=== PATIENT | male | born 1980 | race Hispanic/Latino ===

== ENCOUNTER 2016-10-31 11:58 | Emergency (ER) | payer OTHER ==
[~2016-10-31] VITALS: Ht 167.6 cm; Wt 72.6 kg
[~2016-10-31 11:58] MED LIST: AMOX-358 PO; AZIT-21 PO; CEFD300C3 PO; CYCL10TA45 PO; CYCL10TA9 PO; DIAZ10TA3 PO; DICY10CA59 PO; DIPH50CA33 PO; ESCI10TA PO; FAMO40TA6 PO; FLUT16SP22 NSEACH; FLUT9.9S NS; GABA300C PO; HYDR-1231 PO; HYDR-2856 PO; HYDR-3714 PO; HYDR-3731 PO; HYDR-690 PO; MELO15TA14 PO; METH4TAB PO; METR500T21 PO; NAPR-689 PO; NF-SKEL800 PO; ONDA4TAB11 PO; OXYC-197 PO; OXYC-201 PO; OXYC-202 PO; OXYC20TA54 PO; OXYC30TA77 PO; OXYC30TA80 PO; PANT40TA2 PO; PRD20T PO; PRED10TA PO; PREG75CA PO; RT-ALBUINH IH; SUCR1TAB36 PO; TRAM-21 PO; TRAM50TA2 PO
--- OUTSIDE RECORDS SUMMARY | 2016-10-31 12:03 | XMS REPORT | Continuity of Care Document ---
Author Author Interface Organization Interface Address Unknown Phone Unavailable Problems Problem Status Onset Date Classification Date Reported Comments Source Medications Medication Details Route Status Patient Instructions Ordering Provider Order Date Source Allergies, Adverse Reactions, Alerts Substance Category Reaction Severity Reaction type Status Date Reported Comments Source Immunizations Immunization Date Given Site Status Last Updated Comments Source Results Order Name Results Value Reference Range Date Interpretation Comments Source Vital Signs Vital Sign Value Date Comments Source Encounters Location Location Details Encounter Type Encounter Number Reason For Visit Attending Provider ADM Date DC Date Status Source Procedures Procedure Code Date Perfomer Comments Source
[2016-10-31] MEDS ORDERED: MELO7.5T46 PO (14:07)
--- NOTE | 2016-10-31 14:07 | ED Back Pain ---
General Chief Complaint: Back Problems Stated Complaint: BACK PAIN Nursing Triage Note: to ER with complaints of chronic back pain. Patient has been out of his oxycodone for 3 days. Patient has not informed his PCP of this, nor followed up with PCP. Nursing Sepsis Screen: No Definite Risk Source of Information: Patient Exam Limitations: No Limitations History of Present Illness Time Seen by Provider: 14:05 Initial Comments To ER with reports of chronic low back pain radiates down the left leg. He is seen in the emergency room very frequently for this. reports that she washed his clothes 3 days ago and forgot his pain pills pocket and washed them. K tracs history should be reviewed. He has been without his opiates for 3 days he states Location: Lumbar Spine Timing/Duration: 3-4 Days Severity: Moderate Pain/Injury Location: Back Associated Symptoms: lower back pain Allergies and Home Medications Allergies Coded Allergies: No Known Drug Allergies (Unverified , 06/12/16) Home Medications Gabapentin 300 Mg Capsule #20 300 MG PO TID Start with 1 daily. If well tolerated then 1 pill twice daily the next day. If well tolerated then 1 pill 3 x daily. Prescribed by: AAKASH GUIDO on 10/02/16 1334 Meloxicam 7.5 Mg Tablet #14 7.5 MG PO DAILY Prescribed by: REJI HERNANDEZ on 10/31/16 1407 Oxycodone HCl 30 Mg Tab.er.12h #10 30 MG PO NEEDED Prescribed by: REJI HERNANDEZ on 09/12/16 1303 Oxycodone HCl/Acetaminophen 1 Each Tablet #30 1-2 EACH PO Q6H PRN PRN PAIN Prescribed by: AAKASH GUIDO on 10/02/16 1334 Prednisone 20 Mg Tab #8 40 MG PO DAILY Prescribed by: AAKASH GUIDO on 10/02/16 1334 Constitutional: see HPI EENTM: see HPI Respiratory: no symptoms reported Cardiovascular: no symptoms reported Genitourinary: no symptoms reported Musculoskeletal: see HPI back pain Skin: no symptoms reported Psychiatric/Neurological: No Symptoms Reported Past Oorkimx-Udxfqy-Usueii Hx Patient Social History Alcohol Use: Denies Use Recreational Drug Use: No Smoking Status: Current Everyday Smoker Type Used: Cigarettes Recent Foreign Travel: No Contact w/Someone Who Travel: No Recent Infectious Disease Expo: No Recent Hopitalizations: No (RECENT ABDOMINAL INFECTION) Physical Abuse Screen: No Sexual Abuse: No Immunizations Up To Date Tetanus Booster (TDap): Unknown Date of Influenza Vaccine: Jul 17, 2016 Seasonal Allergies Seasonal Allergies: No Surgeries HX Surgeries: No Respiratory Hx Respiratory Disorders: No Cardiovascular Hx Cardiac Disorders: No Neurological Hx Neurological Disorders: Yes Neurological Disorders: Headaches /Migraines Genitourinary Hx Genitourinary Disorders: No Gastrointestinal Hx Gastrointestinal Disorders: Yes (gi bleed) Gastrointestinal Disorders: Gastroesophageal Reflux Musculoskeletal Hx Musculoskeletal Disorders: Yes Musculoskeletal Disorders: Chronic Back Pain Endocrine Hx Endocrine Disorders: No HEENT HX ENT Disorders: No Cancer Hx Cancer: No Psychosocial Hx Psychiatric Problems: No Integumentary HX Skin/Integumentary Disorder: No Blood Transfusions Hx Blood Disorders: No Adverse Reaction to a Blood Tr: No Family Medical History Significant Family History: No Pertinent Family Hx Physical Exam Vital Signs Vital Sign - Last 12Hours 10/31/16 13:58 Temp 98.1 Pulse 91 Resp 18 B/P 123/79 Pulse Ox 99 O2 Delivery Room Air Capillary Refill : Less Than 3 Seconds General Appearance: No Apparent Distress WD/WN HEENT: PERRL/EOMI TMs Normal Respiratory: No Accessory Muscle Use No Respiratory Distress Gastrointestinal: Normal Bowel Sounds Non Tender Soft Extremity: Normal Capillary Refill Non Tender Neurologic/Psychiatric: Alert Oriented x3 No Motor/Sensory Deficits Skin: Normal Color Warm/Dry Progress/Results/Core Measures Results/Orders Vital Signs/I&O Vital Sign - Last 12Hours 10/31/16 13:58 Temp 98.1 Pulse 91 Resp 18 B/P 123/79 Pulse Ox 99 O2 Delivery Room Air Blood Pressure Mean: 94 Departure Impression Impression: Primary Impression: Chronic low back pain Qualified Code: M54.5 - Low back pain Additional Impression: Opiate addiction Qualified Code: F11.20 - Opioid dependence, uncomplicated Disposition: 01 HOME, SELF-CARE Condition: Stable Departure-Patient Inst. Decision time for Depature: 14:06 Referrals: KAMILLA MCNEIL MD (PCP/Family) Primary Care Physician Patient Instructions: MANAGING YOUR CHRONIC PAIN Add. Discharge Instructions: 1. Follow-up with Dr. Romero or Dr. Mcneil 2. Return to ER for any concerns All discharge instructions reviewed with patient and/or family. Voiced understanding. Scripts Meloxicam 7.5 Mg Tablet7.5 Mg PO DAILY #14 TAB Prov:HERNANDEZREJI DOOLEY APRN 10/31/16 REJI HERNANDEZ APRN Oct 31, 2016 14:07
[2016-10-31 14:15] VITALS: BP 123/79
== END 2016-10-31 14:15 | disposition home or self-care (01) ==
LOC: EDUNIT# 11:58 → ER 11:59
DX: M54.5 Low back pain (principal); G89.29 Other chronic pain; F11.20 Opioid dependence, uncomplicated
CPT/HCPCS: 99285

== ENCOUNTER → 2016-11-04 | Outpatient (CLI) | payer OTHER ==
[~2016-11-04] MED LIST changes: +MELO7.5T46 PO
--- OUTSIDE RECORDS SUMMARY | 2016-11-04 07:36 | XMS REPORT | Continuity of Care Document ---
Author Author Interface Organization Interface Address Unknown Phone Unavailable Problems Problem Status Onset Date Classification Date Reported Comments Source Low back pain 11/01/2016 [facility] Chest pain, unspecified 11/01/2016 [facility] Procedure and treatment not carried out due to patient leaving prior to being seen by health care provider 11/01/2016 [facility] No data available for this section Problem 11/01/2016 [facility] Medications Medication Details Route Status Patient Instructions Ordering Provider Order Date Source Allergies, Adverse Reactions, Alerts Substance Category Reaction Severity Reaction type Status Date Reported Comments Source Immunizations Immunization Date Given Site Status Last Updated Comments Source No data available for this section No data available for this section [facility] Results Order Name Results Value Reference Range Date Interpretation Comments Source Vital Signs Vital Sign Value Date Comments Source Temperature Route Oral </br>(10/27/16 4:26 PM) 10/27/2016 [facility] Temperature Oral 97.7 [degF] 10/27/2016 [facility] Resp. Rate 18 BRMIN 2016 [facility] Heart Rate 85 bpm 10/27/2016 [facility] Systolic BP 126 mmHg 2016 [facility] Diastolic BP 79 mmHg 2016 [facility] Oxygen Saturation 100 % 10/27 [facility] Oxygen Therapy Room air </br>(10/27/16 4:26 PM) 10/27/2016 [facility] Encounters Location Location Details Encounter Type Encounter Number Reason For Visit Attending Provider ADM Date DC Date Status Source [facility] Emergency [id number] Prieto Garcia 10/27/2016 10/28/2016 [facility] Procedures Procedure Code Date Perfomer Comments Source No data available for this section [facility]
--- NOTE | 2016-11-05 07:33 | STRESS TEST ---
PROCEDURE PHYSICIAN: MILLA DIEHL DATE OF PROCEDURE: 11/04/2016 EXERCISE STRESS TEST: REFERRING PHYSICIAN: Dr. Sandro Pratt. INDICATION: Chest pain. PROCEDURE: The patient was brought to the stress lab after informed consent was taken. Stress test was performed based on the standard [facility] protocol. Baseline electrocardiogram showed sinus rhythm with resting heart rate of 91 bpm. Blood pressure was 126/67 mmHg. The patient exercised for 10 minutes and 15 seconds and achieved 12.8 metabolic equivalents. Maximum heart rate was 171 bpm which is 92% of maximum predicted heart rate response. Maximum blood pressure was 164/52 mmHg. The patient did not complain of any chest pain during the stress test. The stress test was stopped secondary to fatigue. No ST changes were noted. There were no arrhythmias present. CONCLUSION: 1. Good functional capacity. 2. Normotensive response to exercise. 3. Exercise stress test was negative for ischemia. Job ID: [id number] Dictated Date: 11/04/2016 14:13:13 [employer] Date: 11/05/2016 07:30:35 / melly
== END ==
LOC: CARD 07:32
PROVIDERS: ATTEND Family Medicine
DX: R07.89 Other chest pain (principal); F41.1 Generalized anxiety disorder
CPT/HCPCS: 93017

== ENCOUNTER 2017-03-20 22:54 | Emergency (ER) | payer OTHER ==
[~2017-03-20] VITALS: Ht 177.8 cm; Wt 99.8 kg
[~2017-03-20 22:54] MED LIST changes: +TRANEXAMIC ACID 100 MG/ML 10 ML INJECTION IV ONE
[2017-03-20] MEDS ORDERED: NS (IVPB) 50 ML ONE (23:01)
[2017-03-20] MEDS ORDERED: fentaNYL INJECTION 100 MCG/2 ML AMP ONE (23:14)
[2017-03-20] MEDS ORDERED: ceFAZolin 1,000 MG (ANCEF) VIAL ONE (23:22)
[2017-03-20] MEDS ORDERED: NS (IVPB) 100 ML ONE (23:23)
[2017-03-20 23:26] LABS: RED BLOOD COUNT 4.86 10^6/uL (4.35-5.85); RED CELL DISTRIBUTION WIDTH 13.3 % (10.0-14.5); WHITE BLOOD COUNT 13.7 10^3/uL (4.3-11.0)
[2017-03-20] MEDS ORDERED: TRANEXAMIC ACID INJECTION 1,000 MG in NS (IVPB) 50 ML IV ONE (23:30)
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
[2017-03-20 23:37] LABS: BILIRUBIN,URINE NEGATIVE (NEGATIVE); KETONES,URINE NEGATIVE (NEGATIVE); LEUKOCYTE ESTERASE ,URINE NEGATIVE (NEGATIVE); NITRITE,URINE NEGATIVE (NEGATIVE); PH,URINE 6.5 (5-9); PROTEIN,URINE NEGATIVE (NEGATIVE); UROBILINOGEN,URINE NORMAL (NORMAL)
[2017-03-20 23:40] LABS: ALANINE AMINOTRANSFERASE 156 U/L (0-55); ALCOHOL 247 MG/DL (<10); ANION GAP 14 MMOL/L (5-14); ASPARTATE AMINO TRANSFERASE 148 U/L (5-34); BILIRUBIN,DIRECT 0.1 MG/DL (0.0-0.3); BILIRUBIN,INDIRECT 0.3 MG/DL; BILIRUBIN,TOTAL 0.4 MG/DL (0.1-1.0); BLOOD UREA NITROGEN 8 MG/DL (7-18); BUN/CREATININE RATIO 9; CALCIUM 8.1 MG/DL (8.5-10.1); CARBON DIOXIDE 17 MMOL/L (21-32); CHLORIDE 116 MMOL/L (98-107); GFR ESTIMATED > 60; GLUCOSE 126 MG/DL (70-105); MAGNESIUM 2.5 MG/DL (1.8-2.4); PHOSPHORUS 5.4 MG/DL (2.3-4.7); POTASSIUM 5.2 MMOL/L (3.6-5.0); SODIUM 147 MMOL/L (135-145); TOTAL PROTEIN 6.8 G/DL (6.4-8.2)
[2017-03-20 23:53] VITALS: BP 121/73
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
[2017-03-21] MEDS ORDERED: NS IV 1000 ML 1,000 ML IV ONE (04:10)
[2017-03-21] MEDS ORDERED: ceFAZolin 1,000 MG (ANCEF) VIAL IV ONE (04:15)
[2017-03-21] MEDS ORDERED: fentaNYL INJECTION 100 MCG/2 ML AMP IVP ONE (04:15)
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
--- OUTSIDE RECORDS SUMMARY | 2017-04-01 13:25 | XMS REPORT | Continuity of Care Document ---
Author Author [facility] Organization [facility] Address Unknown Phone Unavailable Care Team Providers Care Folder Operator Name Role Phone Sandro Pratt PCP [phone] Source Comments Some departments are not documenting in the electronic medical record. If you do not see the information that you expected, contact Release of Information in the Health Information Management department at [phone] for further assistance in locating additional records.[facility] Active Allergies and Adverse Reactions No Known Allergies Current Medications Prescription Sig. Disp. Refills Start End Date Status Date oxyCODONE (ROXICODONE, Take 30 mg by mouth every Active OXY-IR) 30 mg tablet 6 hours as needed for Pain pantoprazole DR Take 40 mg by mouth Active (PROTONIX) 40 mg tablet daily. sucralfate (CARAFATE) 1 Take 1 g by mouth every 6 Active gram tablet hours. Take on an empty stomach. lansoprazole DR(+) Take 30 mg by mouth daily Active (PREVACID) 30 mg capsule 30 minutes before breakfast. Active Problems Problem Noted Date Lumbosacral radiculopathy at L4 12/07/2016 Annular tear of lumbar disc 12/07/2016 Herniated nucleus pulposus, L4-5 left 12/07/2016 Social History Tobacco Use Types Packs/Day Years Used Date Current Some Day Smoker Last Filed Vital Signs Vital Sign Reading Time Taken Blood Pressure 118/70 12/07/2016 10:32 AM HYDRAULIC PRESS IN OPERATOR Pulse 91 12/07/2016 10:32 AM HYDRAULIC PRESS IN OPERATOR Temperature 37.1 C (98.7 F) 10/19/2016 1:59 PM HYDRAULIC PRESS IN OPERATOR Respiratory Rate 15 10/19/2016 1:59 PM HYDRAULIC PRESS IN OPERATOR Height 1.676 m (5' 6") 12/07/2016 10:32 AM HYDRAULIC PRESS IN OPERATOR Weight 70.308 kg (155 lb) 12/07/2016 10:32 AM HYDRAULIC PRESS IN OPERATOR Body Mass Index 25.03 12/07/2016 10:32 AM HYDRAULIC PRESS IN OPERATOR Oxygen Saturation 100% 10/19/2016 1:59 PM HYDRAULIC PRESS IN OPERATOR Plan of Care Health Maintenance Due Date Last Done Comments Physical (Comprehensive) 1988 Exam Pertussis Vaccine 1992 Tetanus Vaccine 1998 Influenza Vaccine 06/17/2017 Results from Last 3 Months Not on file
--- OUTSIDE RECORDS SUMMARY | 2017-04-01 13:25 | XMS REPORT ---
Author Author CARINE STYLES Organization [employer] Address Unknown Phone Unavailable Care Team Providers Care Postdoctoral Scholar Name Role Phone CARINE STYLES CP Unavailable Allergies No Known Allergies Problems Problem Type Condition ICD-9 Code Onset Dates Condition Status Problem Counseling on substance use and abuse V65.42 Active Problem Influenza with other respiratory manifestations 487.1 Active Problem Lumbago 724.2 Active Assessment Dental examination V72.2 Active Medications No Known Medications Procedures Procedure Coding System Code Date Billing Notes on claim CPT-4 EC109 March 25, 2015 Results No Known Results Summary Purpose [employer] Submission
--- OUTSIDE RECORDS SUMMARY | 2017-04-01 13:25 | XMS REPORT | Continuity of Care Document ---
Author Author [employer] Organization [facility] Address Unknown Phone Unavailable Care Team Providers Care Customer Success Director Name Role Phone [employer] Unavailable Unavailable Problems Problem Status Onset Date Classification Date Reported Comments Source Low back pain 11/01/2016 [facility] Chest pain, unspecified 11/01/2016 [facility] Procedure and treatment not carried out due to patient leaving prior to being seen by health care provider 11/01/2016 [facility] No data available for this section Problem 11/01/2016 [facility] Medications Allergies, Adverse Reactions, Alerts Immunizations Immunization Date Given Site Status Last Updated Comments Source No data available for this section No data available for this section [facility] Results Vital Signs Vital Sign Value Date Comments Source Temperature Route Oral
</br>(10/27/16 4:26 PM) 10/27/2016 [facility] Temperature Oral 97.7 [degF] 10/27/2016 [facility] Resp. Rate 18 BRMIN 2016 [facility] Heart Rate 85 bpm 10/27/2016 [facility] Systolic BP 126 mmHg 2016 [facility] Diastolic BP 79 mmHg 2016 [facility] Oxygen Saturation 100 % 10/27 [facility] Oxygen Therapy Room air
</br>(10/27/16 4:26 PM) 10/27/2016 [facility] Encounters Location Location Details Encounter Type Encounter Number Reason For Visit Attending Provider ADM Date DC Date Status Source [facility] Emergency [id number] Prieto Go 10/27/2016 10/28/2016 [facility] Procedures Procedure Code Date Perfomer Comments Source No data available for this section [facility] Plan of Care Social History Assessment and Plan Date Assessment and Plan Source Author:Jinny Choudhary Title:ED Discharge Instructions Date:10/27/[address] [address] Emergency Department [phone] Emergency Department Discharge Instructions Name : SANA PACK Visit Date: 10/27/2016 4:07 PM Reason For Visit: Chest pain; CP Case Management Discharge: [employer] Discharge Form Disposition: Left without being seen by practitioner Left Without Being Seen 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 It is important that you understand that emergency medical services are not a substitute for complete medical care. For your protection, make arrangements to see the doctor indicated below. All smokers are encouraged to stop smoking. If you would like help, talk to your doctor or call The [place] Tobacco Quitline at 2-409-YGVK-NXT (1-292-050- 7519). If you have thoughts about committing suicide or otherwise hurting yourself, please call 911 or call Crisis Line at . If your primary care provider is a [facility] physician or you would like to establish care at [facility] please call [phone] to schedule an appointment. If you are a new patient you may have to wait up to 60 days for a scheduled appointment. If you need to establish care sooner, you may want to look for other options. PAYMENT GUIDELINES FOR [facility] PATIENTS: [facility] now requires all self-pay and partial [facility] discount patients to make a down payment before receiving non-emergency care. In most cases, your down payment will be 25 percent of your charges. If you currently receive a 100% [facility] discount , these new guidelines do not apply to you. We accept mclain, check, Visa and MasterCard. If you are a self-pay patient and would like to discuss discounted services or Medicaid, please contact [facility] at [phone]. Remember: at the time of your appointment, you must present a photo ID as well as your insurance card or the required down payment, or your appointment will be rescheduled for another day. If you have commercial insurance and [facility] is not on your list of providers, please call your insurance company and make your follow-up appointment with your PCP or a provider who takes your insurance. SANA PACK has been given the following list of patient education materials, prescriptions and follow-up instructions: Follow-up Instructions: Patient Education Materials : Prescription leaflets: Prescriptions : No Prescriptions given this visit Comment: Your Upcoming Appointments/[facility]icky [place] Please bring all home medications to every visit with us at [facility]. Your safety and education around medications is our goal. (Prescription , non prescription and herbal supplements) Date Time Location Appointment Type Provider No Appointments found Future Orders Placed Today/ [facility] Doctor Order Name Details Ordering Provider EKG 12 Lead Requested Start Date/Time: 10/27/16 16:08:00 Cardiology Reason For Exam: Chest Pain 786.50 EKG Priority: Stat Future Order: No Schedule on Requested Date: No Stop Date/Time: 10/27/16 16:08:00 [facility], Protocol Major procedures/tests performed during your ED visit: Laboratory Orders No laboratory orders were placed. Radiology Orders No radiology orders were placed. [ ] (If checked) Do not drive or operate heavy machinery for 12 hours. The exam and treatment that you received today has been provided on an emergency basis only. If your problem worsens or new symptoms appear, contact your doctor or return to this facility for further care. YOU MUST MAKE A FOLLOW-UP APPOINTMENT IN THE CLINIC LISTED ABOVE TO RECEIVE YOUR TEST RESULTS! Take Charge of Your Health with [facility] Sign up today for [employer] [email or web address] for access to your health records 09/05. [employer] [facility] allows you to: Request an appointment Check your lab results Communicate with your providers and care team See provider notes from your visit View immunization records View current medication Sign up Today! Ask your healthcare provider or a [facility] associate for help, or email [email or web address]. [email or web address] RAMONE Bejarano JOSE L, have received the attached patient education materials/ instructions and have verbalized understanding/Yo recibi educacion, materiales instrucciones de paciente y se me a explicado verbalmente para mi propia comprension: Patient/Guardian Signature Date Firma de paciente/guardian Fecha Witness Signature Date William Condon [facility] Family History Value Date Source Advance Directives Order Name Results Value Date Source
--- OUTSIDE RECORDS SUMMARY | 2017-04-01 13:29 | XMS REPORT | Continuity of Care Document ---
Author Author [facility] Organization [facility] Address Unknown Phone Unavailable Allergies Active Description Code Type Severity Reaction Onset Reported/Identified Relationship to Patient Clinical Status Yes No Known Drug Allergies [id number] Drug Allergy Mild N/A 06/12/2016 Medications Problems Date Dx Coded Attending Type Code Diagnosis Diagnosed By 03/22/2014 REJI HERNANDEZ WEIGHING STATION OPERATOR Ot 708.9 URTICARIA NOS 03/22/2014 REJI HERNANDEZ WEIGHING STATION OPERATOR Ot 782.1 NONSPECIF SKIN ERUPT NEC 03/23/2014 AMILCAR LOUIS MD Ot 708.9 URTICARIA NOS 03/23/2014 AMILCAR LOUIS MD Ot 782.1 NONSPECIF SKIN ERUPT NEC 08/04/2014 JOE ARANDA, CINDY Fang Ot 724.2 LUMBAGO 08/04/2014 CINDY DIAZ MD Ot 724.4 LUMBOSACRAL NEURITIS NOS 08/21/2014 REJI HERNANDEZ WEIGHING STATION OPERATOR Ot 724.2 LUMBAGO 08/21/2014 REJI HERNANDEZ WEIGHING STATION OPERATOR Ot 724.4 LUMBOSACRAL NEURITIS NOS 09/11/2014 REJI HERNANDEZ WEIGHING STATION OPERATOR Ot 721.3 10/01/2014 REJI HERNANDEZ WEIGHING STATION OPERATOR Ot 721.3 10/01/2014 REJI HERNANDEZ WEIGHING STATION OPERATOR Ot 721.3 10/14/2014 REJI HERNANDEZ WEIGHING STATION OPERATOR Ot 721.3 10/23/2014 JARED ROBERTSON DO Ot 724.3 SCIATICA 10/23/2014 JARED ROBERTSON DO Ot 724.4 LUMBOSACRAL NEURITIS NOS 10/23/2014 JARED ROBERTSON DO Ot 729.5 PAIN IN LIMB 10/29/2014 REJI HERNANDEZ WEIGHING STATION OPERATOR Ot 721.3 11/05/2014 BRIJESH SALAS MD Ot 724.02 11/05/2014 BRIJESH SALAS MD Ot 724.4 11/05/2014 MARITZA ARANDA, BRIJESH Way Ot V74.8 11/15/2014 REJI HERNANDEZ APRN Ot 721.3 11/15/2014 BRIJESH SALAS MD Ot 724.02 11/15/2014 BRIJESH SALAS MD Ot 724.4 11/15/2014 BRIJESH SALAS MD Ot V74.8 11/15/2014 BRIJESH SALAS MD Ot 724.02 11/15/2014 BRIJESH SALAS MD Ot V72.84 11/25/2014 BRIJESH SALAS MD Ot 724.02 11/25/2014 BRIJESH SALAS MD Ot 724.4 11/25/2014 BRIJESH SALAS MD Ot V74.8 01/13/2015 BRIJESH SALAS MD Ot 724.02 01/13/2015 BRIJESH SALAS MD Ot 724.4 01/13/2015 BRIJESH SALAS MD Ot V74.8 01/21/2015 LUIS ARANDA, ANN Way Ot 722.52 01/21/2015 LUIS ARANDA, ANN Way Ot V57.1 01/31/2015 ANN SMITH MD Ot 722.52 01/31/2015 LUIS ARANDA, ANN Way Ot V57.1 02/05/2015 BRIJESH SALAS MD Ot 724.02 02/05/2015 BRIJESH SALAS MD Ot V72.84 02/11/2015 LUIS ARANDA, ANN Way Ot 722.52 LUMB/LUMBOSAC DISC DEGEN 02/11/2015 LUIS ARANDA, ANN Way Ot V57.1 PHYSICAL THERAPY NEC 06/07/2015 BRIJESH SALAS MD Ot 724.02 06/07/2015 BRIJESH SALAS MD Ot 724.4 06/07/2015 BRIJESH SALAS MD Ot V74.8 06/07/2015 MOLLY BANEGAS MD Ot 724.2 LUMBAGO 06/07/2015 MOLLY BANEGAS MD Ot 724.4 LUMBOSACRAL NEURITIS NOS 08/19/2015 BRIJESH SALAS MD Ot 724.02 08/19/2015 BRIJESH SALAS MD Ot 724.4 08/19/2015 BRIJESH SALAS MD Ot V74.8 08/19/2015 BRIJESH SALAS MD Ot 724.02 08/19/2015 BRIJESH SALAS MD Ot 724.4 08/19/2015 BRIJESH SALAS MD Ot V74.8 09/08/2015 BRIJESH SALAS MD Ot 724.02 09/08/2015 BRIJESH SALAS MD Ot 724.4 09/08/2015 BRIJESH SALAS MD Ot V74.8 09/08/2015 CARINE DAVIS MD Ot M47.816 SPONDYLOSIS W/O MYELOPATHY OR RADICULOPA 09/08/2015 CARINE DAVIS MD Ot M51.16 INTERVERTEBRAL DISC DISORDERS W RADICULO 09/24/2015 ANN SMITH MD Ot M54.5 11/07/2015 REJI HERNANDEZ WEIGHING STATION OPERATOR Ot 721.3 11/07/2015 BRIJESH SALAS MD Ot 724.02 11/07/2015 BRIJESH SALAS MD Ot 724.4 11/07/2015 BRIJESH SALAS MD Ot V74.8 11/07/2015 BRIJESH SALAS MD Ot 724.02 11/07/2015 BRIJESH SALAS MD Ot V72.84 11/17/2015 REJI HERNANDEZ WEIGHING STATION OPERATOR Ot 721.3 11/17/2015 BRIJESH SALAS MD Ot 724.02 11/17/2015 BRIJESH SALAS MD Ot 724.4 11/17/2015 BRIJESH SALAS MD Ot V74.8 11/17/2015 BRIJESH SALAS MD Ot 724.02 11/17/2015 BRIJESH SALAS MD Ot V72.84 11/17/2015 ANN SMITH MD Ot M54.5 01/13/2016 REJI HERNANDEZ WEIGHING STATION OPERATOR Ot 721.3 01/13/2016 BRIJESH SALAS MD Ot 724.02 01/13/2016 BRIJESH SALAS MD Ot 724.4 01/13/2016 BRIJESH SALAS MD Ot V74.8 01/13/2016 BRIJESH SALAS MD Ot 724.02 01/13/2016 BRIJESH SALAS MD Ot V72.84 01/13/2016 ANN SMITH MD Ot M54.5 01/13/2016 ANN SMITH MD Ot M54.5 03/18/2016 REJI HERNANDEZ APRN Ot 721.3 LUMBOSACRAL SPONDYLOSIS 03/18/2016 BRIJESH SALAS MD Ot 724.02 SPINAL STENOSIS, LUMBAR REG, W/OUT NEURO 03/18/2016 BRIJESH SALAS MD Ot 724.4 LUMBOSACRAL NEURITIS NOS 03/18/2016 BRIJESH SALAS MD Ot V74.8 SCREEN-BACTERIAL DIS NEC 03/18/2016 BRIJESH SALAS MD Ot 724.02 SPINAL STENOSIS, LUMBAR REG, W/OUT NEURO 03/18/2016 BRIJESH SALAS MD Ot V72.84 EXAM PRE-OPERATIVE NOS 03/18/2016 ANN SMITH MD Ot M54.5 LOW BACK PAIN 03/18/2016 REJI HERNANDEZ APRN Ot H66.92 OTITIS MEDIA, UNSPECIFIED, LEFT EAR 03/18/2016 REJI HERNANDEZ APRN Ot J01.10 ACUTE FRONTAL SINUSITIS, UNSPECIFIED 03/18/2016 REJI HERNANDEZ APRN Ot R06.2 WHEEZING 03/19/2016 REJI HERNANDEZ APRN Ot H66.92 OTITIS MEDIA, UNSPECIFIED, LEFT EAR 03/19/2016 REJI HERNANDEZ APRN Ot J01.10 ACUTE FRONTAL SINUSITIS, UNSPECIFIED 03/19/2016 REJI HERNANDEZ APRN Ot R06.2 WHEEZING 03/20/2016 NORA ARANDA, PATEL Fang Ot F17.210 NICOTINE DEPENDENCE, CIGARETTES, UNCOMPL 03/20/2016 NORA ARANDA, PATEL Fang Ot J06.9 ACUTE UPPER RESPIRATORY INFECTION, UNSPE 03/20/2016 NORA ARANDA, PATEL Fang Ot K92.1 MELENA 03/20/2016 PATEL MELENDEZ MD Ot R19.7 DIARRHEA, UNSPECIFIED 04/20/2016 ANN SMITH MD Ot M54.5 LOW BACK PAIN 04/20/2016 REJI HERNANDEZ APRN Ot 721.3 LUMBOSACRAL SPONDYLOSIS 04/20/2016 BRIJESH SALAS MD Ot 724.02 SPINAL STENOSIS, LUMBAR REG, W/OUT NEURO 04/20/2016 BRIJESH SALAS MD Ot 724.4 LUMBOSACRAL NEURITIS NOS 04/20/2016 BRIJESH SALAS MD Ot V74.8 SCREEN-BACTERIAL DIS NEC 04/20/2016 MARITZA ARANDA, BRIJESH aWy Ot 724.02 SPINAL STENOSIS, LUMBAR REG, W/OUT NEURO 04/20/2016 MARITZA ARANDA, BRIJESH Way Ot V72.84 EXAM PRE-OPERATIVE NOS 04/20/2016 LUIS ARANDA, ANN Way Ot M54.5 LOW BACK PAIN 05/04/2016 MERCEDES DO, ALEXI D Ot K29.70 GASTRITIS, UNSPECIFIED, WITHOUT BLEEDING 05/04/2016 MERCEDES DO, ALEXI D Ot K44.9 DIAPHRAGMATIC HERNIA WITHOUT OBSTRUCTION 05/04/2016 MERCEDES DO, ALEXI D Ot R19.5 OTHER FECAL ABNORMALITIES 05/05/2016 MERCEDES DO, ALEXI D Ot K29.70 GASTRITIS, UNSPECIFIED, WITHOUT BLEEDING 05/05/2016 MERCEDES DO, ALEXI D Ot K44.9 DIAPHRAGMATIC HERNIA WITHOUT OBSTRUCTION 05/05/2016 MERCEDES DO, ALEXI D Ot R19.5 OTHER FECAL ABNORMALITIES 05/05/2016 MERCEDES DO, ALEXI D Ot K29.70 GASTRITIS, UNSPECIFIED, WITHOUT BLEEDING 05/05/2016 MERCEDES DO, ALEXI D Ot K44.9 DIAPHRAGMATIC HERNIA WITHOUT OBSTRUCTION 05/05/2016 MERCEDES DO, ALEXI D Ot R19.5 OTHER FECAL ABNORMALITIES 06/12/2016 REJI HERNANDEZ WEIGHING STATION OPERATOR Ot K58.0 IRRITABLE BOWEL SYNDROME WITH DIARRHEA 06/12/2016 REJI HERNANDEZ WEIGHING STATION OPERATOR Ot R19.7 DIARRHEA, UNSPECIFIED 06/15/2016 REJI HERNANDEZ WEIGHING STATION OPERATOR Ot K58.0 IRRITABLE BOWEL SYNDROME WITH DIARRHEA 06/15/2016 REJI HERNANDEZ WEIGHING STATION OPERATOR Ot R19.7 DIARRHEA, UNSPECIFIED 07/16/2016 REJI HERNANDEZ WEIGHING STATION OPERATOR Ot K58.0 IRRITABLE BOWEL SYNDROME WITH DIARRHEA 07/16/2016 REJI HERNANDEZ WEIGHING STATION OPERATOR Ot R19.7 DIARRHEA, UNSPECIFIED 08/01/2016 REJI HERNANDEZ WEIGHING STATION OPERATOR Ot F41.9 ANXIETY DISORDER, UNSPECIFIED 08/01/2016 REJI HERNANDEZ WEIGHING STATION OPERATOR Ot G89.29 OTHER CHRONIC PAIN 08/01/2016 REJI HERNANDEZ WEIGHING STATION OPERATOR Ot M54.5 LOW BACK PAIN 08/01/2016 REJI HERNANDEZ WEIGHING STATION OPERATOR Ot R51 HEADACHE 08/01/2016 REJI HERNANDEZ WEIGHING STATION OPERATOR Ot Z79.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 SAFETY OFFICER (CURRENT) USE OF OPIATE ANALGE 08/03/2016 REJI HERNANDEZ WEIGHING STATION OPERATOR Ot F41.9 ANXIETY DISORDER, UNSPECIFIED 08/03/2016 REJI HERNANDEZ WEIGHING STATION OPERATOR Ot G89.29 OTHER CHRONIC PAIN 08/03/2016 REJI HERNANDEZ WEIGHING STATION OPERATOR Ot M54.5 LOW BACK PAIN 08/03/2016 REJI HERNANDEZ WEIGHING STATION OPERATOR Ot R51 HEADACHE 08/03/2016 REJI HERNANDEZ WEIGHING STATION OPERATOR Ot Z79.891 GLOBAL SAFETY OFFICER (CURRENT) USE OF OPIATE ANALGE 08/05/2016 LAVELLE ARANDA, AAKASH T Ot F17.210 NICOTINE DEPENDENCE, CIGARETTES, UNCOMPL 08/05/2016 LAVELLE ARANDA, AAKASH T Ot G89.29 OTHER CHRONIC PAIN 08/05/2016 LAVELLE ARANDA, AAKASH T Ot M54.2 CERVICALGIA 08/05/2016 LAVELLE ARANDA, AAKASH T Ot M54.5 LOW BACK PAIN 08/06/2016 LAVELLE ARANDA, AAKASH T Ot F17.210 NICOTINE DEPENDENCE, CIGARETTES, UNCOMPL 08/06/2016 LAVELLE ARANDA, AAKASH T Ot G89.29 OTHER CHRONIC PAIN 08/06/2016 LAVELLE ARANDA, AAKASH T Ot M54.2 CERVICALGIA 08/06/2016 LAVELLE ARANDA, AAKASH T Ot M54.5 LOW BACK PAIN 08/11/2016 LAVELLE ARANDA, AAAKSH T Ot F17.210 NICOTINE DEPENDENCE, CIGARETTES, UNCOMPL 08/11/2016 LAVELLE ARANDA, AAKASH T Ot G89.29 OTHER CHRONIC PAIN 08/11/2016 LAVELLE ARANDA, AAKASH T Ot M54.2 CERVICALGIA 08/11/2016 LAVELLE ARANDA, AAKASH T Ot M54.5 LOW BACK PAIN 08/11/2016 REJI HERNANDEZ WEIGHING STATION OPERATOR Ot F17.210 NICOTINE DEPENDENCE, CIGARETTES, UNCOMPL 08/11/2016 REJI HERNANDEZ WEIGHING STATION OPERATOR Ot M54.16 RADICULOPATHY, LUMBAR REGION 09/06/2016 NILSON MCNAIR DO Ot F17.210 NICOTINE DEPENDENCE, CIGARETTES, UNCOMPL 09/06/2016 NILSON MCNAIR DO Ot M48.06 SPINAL STENOSIS, LUMBAR REGION 09/06/2016 NILSON MCNAIR DO Ot M51.16 INTERVERTEBRAL DISC DISORDERS W RADICULO 09/06/2016 NILSON MCNAIR DO Ot M54.5 LOW BACK PAIN 09/07/2016 NILSON MCNAIR DO Ot F17.210 NICOTINE DEPENDENCE, CIGARETTES, UNCOMPL 09/07/2016 NILSON MCNAIR DO Ot M48.06 SPINAL STENOSIS, LUMBAR REGION 09/07/2016 NILSON MCNAIR DO Ot M51.16 INTERVERTEBRAL DISC DISORDERS W RADICULO 09/07/2016 NILSON MCNAIR DO Ot M54.5 LOW BACK PAIN 09/12/2016 REJI HERNANDEZ APRN Ot F17.210 NICOTINE DEPENDENCE, CIGARETTES, UNCOMPL 09/12/2016 REJI HERNANDEZ APRN Ot R11.2 NAUSEA WITH VOMITING, UNSPECIFIED 09/12/2016 REJI HERNANDEZ APRN Ot R19.7 DIARRHEA, UNSPECIFIED 09/14/2016 REJI HERNANDEZ APRN Ot F17.210 NICOTINE DEPENDENCE, CIGARETTES, UNCOMPL 09/14/2016 REJI HERNANDEZ APRN Ot R11.2 NAUSEA WITH VOMITING, UNSPECIFIED 09/14/2016 REJI HERNANDEZ APRN Ot R19.7 DIARRHEA, UNSPECIFIED 09/14/2016 REJI HERNANDEZ APRN Ot F17.210 NICOTINE DEPENDENCE, CIGARETTES, UNCOMPL 09/14/2016 REJI HERNANDEZ APRN Ot R11.2 NAUSEA WITH VOMITING, UNSPECIFIED 09/14/2016 REJI HERNANDEZ APRN Ot R19.7 DIARRHEA, UNSPECIFIED 09/17/2016 NILSON MCNAIR DO Ot F17.210 NICOTINE DEPENDENCE, CIGARETTES, UNCOMPL 09/17/2016 NILSON MCNAIR DO Ot M48.06 SPINAL STENOSIS, LUMBAR REGION 09/17/2016 NILSON MCNAIR DO Ot M51.16 INTERVERTEBRAL DISC DISORDERS W RADICULO 09/17/2016 NILSON MCNAIR DO Ot M54.5 LOW BACK PAIN 09/17/2016 REJI HERNANDEZ APRN Ot F17.210 NICOTINE DEPENDENCE, CIGARETTES, UNCOMPL 09/17/2016 REJI HERNANDEZ APRN Ot R11.2 NAUSEA WITH VOMITING, UNSPECIFIED 09/17/2016 REJI HERNANDEZ APRN Ot R19.7 DIARRHEA, UNSPECIFIED 09/26/2016 REJI HERNANDEZ APRN Ot M48.06 SPINAL STENOSIS, LUMBAR REGION 09/26/2016 REJI HERNANDEZ APRN Ot M54.16 RADICULOPATHY, LUMBAR REGION 09/26/2016 REJI HERNANDEZ APRN Ot M54.5 LOW BACK PAIN 09/27/2016 REJI HERNANDEZ APRN Ot F17.210 NICOTINE DEPENDENCE, CIGARETTES, UNCOMPL 09/27/2016 REJI HERNANDEZ WEIGHING STATION OPERATOR Ot R11.2 NAUSEA WITH VOMITING, UNSPECIFIED 09/27/2016 REJI HERNANDEZ APRN Ot R19.7 DIARRHEA, UNSPECIFIED 09/27/2016 REJI HERNANDEZ APRN Ot 721.3 LUMBOSACRAL SPONDYLOSIS 09/27/2016 MARITZA ARANDA, BRIJESH Way Ot 724.02 SPINAL STENOSIS, LUMBAR REG, W/OUT NEURO 09/27/2016 MARITZA ARANDA, BRIJESH Way Ot 724.4 LUMBOSACRAL NEURITIS NOS 09/27/2016 BRIJESH SALAS MD Ot V74.8 SCREEN-BACTERIAL DIS NEC 09/27/2016 MARITZA ARANDA, BRIJESH Way Ot 724.02 SPINAL STENOSIS, LUMBAR REG, W/OUT NEURO 09/27/2016 MARITZA ARANDA, BRIJESH Way Ot V72.84 EXAM PRE-OPERATIVE NOS 09/27/2016 LUIS ARANDA, ANN Way Ot M54.5 LOW BACK PAIN 09/27/2016 REJI HERNANDEZ APRN Ot F17.210 NICOTINE DEPENDENCE, CIGARETTES, UNCOMPL 09/27/2016 REJI HERNANDEZ APRN Ot R11.2 NAUSEA WITH VOMITING, UNSPECIFIED 09/27/2016 REJI HERNANDEZ APRN Ot R19.7 DIARRHEA, UNSPECIFIED 09/27/2016 REJI HERNANDEZ APRN Ot F17.210 NICOTINE DEPENDENCE, CIGARETTES, UNCOMPL 09/27/2016 REJI HERNANDEZ APRN Ot R11.2 NAUSEA WITH VOMITING, UNSPECIFIED 09/27/2016 REJI HERNANDEZ APRN Ot R19.7 DIARRHEA, UNSPECIFIED 09/28/2016 REJI HERNANDEZ APRN Ot M48.06 SPINAL STENOSIS, LUMBAR REGION 09/28/2016 REJI HERNANDEZ APRN Ot M54.16 RADICULOPATHY, LUMBAR REGION 09/28/2016 REJI HERNANDEZ APRN Ot M54.5 LOW BACK PAIN 09/28/2016 REJI HERNANDEZ APRN Ot 721.3 LUMBOSACRAL SPONDYLOSIS 09/28/2016 MARITZA ARANDA, BRIJESH Way Ot 724.02 SPINAL STENOSIS, LUMBAR REG, W/OUT NEURO 09/28/2016 BRIJESH SALAS MD Ot 724.4 LUMBOSACRAL NEURITIS NOS 09/28/2016 BRIJESH SALAS MD Ot V74.8 SCREEN-BACTERIAL DIS NEC 09/28/2016 BRIJESH SALAS MD Ot 724.02 SPINAL STENOSIS, LUMBAR REG, W/OUT NEURO 09/28/2016 BRIJESH SALAS MD Ot V72.84 EXAM PRE-OPERATIVE NOS 09/28/2016 LUIS ARANDA, ANN Way Ot M54.5 LOW BACK PAIN 09/28/2016 REJI HERNANDEZ APRN Ot F17.210 NICOTINE DEPENDENCE, CIGARETTES, UNCOMPL 09/28/2016 REJI HERNANDEZ APRN Ot R11.2 NAUSEA WITH VOMITING, UNSPECIFIED 09/28/2016 REJI HERNANDEZ APRN Ot R19.7 DIARRHEA, UNSPECIFIED 09/29/2016 KAMILLA MCNEIL MD Ot M54.5 LOW BACK PAIN 10/02/2016 AAKASH VALDERRAMA MD T Ot G89.29 OTHER CHRONIC PAIN 10/02/2016 LAVELLE ARANDA, AAKASH T Ot M48.06 SPINAL STENOSIS, LUMBAR REGION 10/02/2016 LAVELLE ARANDA, AAKASH T Ot M51.16 INTERVERTEBRAL DISC DISORDERS W RADICULO 10/02/2016 AAKASH VALDERRAMA MD T Ot M54.5 LOW BACK PAIN 10/04/2016 LAVELLE ARANDA, AAKASH T Ot G89.29 OTHER CHRONIC PAIN 10/04/2016 LAVELLE ARANDA, AAKASH T Ot M48.06 SPINAL STENOSIS, LUMBAR REGION 10/04/2016 AAKASH VALDERRAMA MD T Ot M51.16 INTERVERTEBRAL DISC DISORDERS W RADICULO 10/04/2016 AAKASH VALDERRAMA MD T Ot M54.5 LOW BACK PAIN 10/21/2016 KAMILLA MCNEIL MD Ot M54.5 LOW BACK PAIN 10/31/2016 REJI HERNANDEZ APRN Ot F11.20 OPIOID DEPENDENCE, UNCOMPLICATED 10/31/2016 REJI HERNANDEZ APRN Ot G89.29 OTHER CHRONIC PAIN 10/31/2016 REJI HERNANDEZ APRN Ot M54.5 LOW BACK PAIN 11/02/2016 REJI HERNANDEZ WEIGHING STATION OPERATOR Ot F11.20 OPIOID DEPENDENCE, UNCOMPLICATED 11/02/2016 REJI HERNANDEZ WEIGHING STATION OPERATOR Ot G89.29 OTHER CHRONIC PAIN 11/02/2016 REJI HERNANDEZ WEIGHING STATION OPERATOR Ot M54.5 LOW BACK PAIN 11/05/2016 KAMILLA MCNEIL MD Ot F41.1 GENERALIZED ANXIETY DISORDER 11/05/2016 KAMILLA MCNEIL MD C Ot R07.89 OTHER CHEST PAIN 11/06/2016 KAMILLA MCNEIL MD C Ot F41.1 GENERALIZED ANXIETY DISORDER 11/06/2016 KAMILLA MCNEIL MD C Ot R07.89 OTHER CHEST PAIN 11/08/2016 KAMILLA MCNEIL MD Ot F41.1 GENERALIZED ANXIETY DISORDER 11/08/2016 KAMILLA MCNEIL MD C Ot R07.89 OTHER CHEST PAIN 11/16/2016 KAMILLA MCNEIL MD Ot F41.1 GENERALIZED ANXIETY DISORDER 11/16/2016 KAMILLA MCNEIL MD Ot R07.89 OTHER CHEST PAIN 02/10/2017 KAMILLA MCNEIL MD Ot F41.1 GENERALIZED ANXIETY DISORDER 02/10/2017 KAMILLA MCNEIL MD Ot R07.89 OTHER CHEST PAIN 03/20/2017 KAMILLA MCNEIL MD Ot F41.1 GENERALIZED ANXIETY DISORDER 03/20/2017 KAMILLA MCNEIL MD C Ot R07.89 OTHER CHEST PAIN Procedures Results Test Result Range Complete urinalysis with reflex to culture - 06/12/16 11:03 Urine color determination YELLOW NRG Urine clarity determination CLEAR NRG Urine pH measurement by test strip 6 5- 9 Specific gravity of urine by test strip 1.020 1.016-1.022 Urine protein assay by test strip, semi-quantitative NEGATIVE NEGATIVE Urine glucose detection by automated test strip NEGATIVE NEGATIVE Erythrocytes detection in urine sediment by light microscopy 1+ NEGATIVE Urine ketones detection by automated test strip NEGATIVE NEGATIVE Urine nitrite detection by test strip NEGATIVE NEGATIVE Urine total bilirubin detection by test strip NEGATIVE NEGATIVE Urine urobilinogen measurement by automated test strip (mass/volume) NORMAL NORMAL Urine leukocyte esterase detection by dipstick 1+ NEGATIVE Automated urine sediment erythrocyte count by microscopy (number/high power field) NONE NRG Automated urine sediment leukocyte count by microscopy (number/high power field ) [HPF] NRG Bacteria detection in urine sediment by light microscopy NEGATIVE NRG Crystals detection in urine sediment by light microscopy NONE NRG Casts detection in urine sediment by light microscopy NONE NRG Mucus detection in urine sediment by light microscopy LARGE NRG Complete urinalysis with reflex to culture NO NRG Complete blood count (CBC) with automated white blood cell (WBC) differential - 06/12/16 11:15 Blood leukocytes automated count (number/volume) 8.4 10*3/ uL 4.3-11.0 Blood erythrocytes automated count (number/volume) 5.13 10*6 /uL 4.35-5.85 Venous blood hemoglobin measurement (mass/volume) 15.2 g/dL 13.3-17.7 Blood hematocrit (volume fraction) 42 % 40-54 Automated erythrocyte mean corpuscular volume 83 [foz_us] 80-99 Automated erythrocyte mean corpuscular hemoglobin (mass per erythrocyte) 30 pg 25-34 Automated erythrocyte mean corpuscular hemoglobin concentration measurement ( mass/volume) 36 g/dL 32-36 Automated erythrocyte distribution width ratio 13.2 % 10.0-14.5 Automated blood platelet count (count/volume) 302 10*3/uL 130-400 Automated blood platelet mean volume measurement 11.1 [foz_ us] 7.4-10.4 Automated blood neutrophils/100 leukocytes 60 % 42-75 Automated blood lymphocytes/100 leukocytes 28 % 12-44 Blood monocytes/100 leukocytes 11 % 0-12 Automated blood eosinophils/100 leukocytes 1 % 0-10 Automated blood basophils/100 leukocytes 0 % 0-10 Blood neutrophils automated count (number/volume) 5.0 10*3 1.8-7.8 Blood lymphocytes automated count (number/volume) 2.4 10*3 1.0-4.0 Blood monocytes automated count (number/volume) 0.9 10*3 0.0-1.0 Automated eosinophil count 0.1 10*3/uL 0.0-0.3 Automated blood basophil count (count/volume) 0.0 10*3/uL 0.0-0.1 Comprehensive metabolic panel - 06/12/16 11:15 Serum or plasma sodium measurement (moles/volume) 142 mmol/ L 135-145 Serum or plasma potassium measurement (moles/volume) 3.6 mmol/L 3.6-5.0 Serum or plasma chloride measurement (moles/volume) 108 mmol /L 98-107 Carbon dioxide 22 mmol/L 21-32 Serum or plasma anion gap determination (moles/volume) 12 mmol/L 5-14 Serum or plasma urea nitrogen measurement (mass/volume) 7 mg /dL 7-18 Serum or plasma creatinine measurement (mass/volume) 0.82 mg /dL 0.60-1.30 Serum or plasma urea nitrogen/creatinine mass ratio 9 NRG Serum or plasma creatinine measurement with calculation of estimated glomerular filtration rate > NRG Serum or plasma glucose measurement (mass/volume) 115 mg/dL 70-105 Serum or plasma calcium measurement (mass/volume) 9.5 mg/dL 8.5-10.1 Serum or plasma total bilirubin measurement (mass/volume) 0.6 mg/dL 0.1-1.0 Serum or plasma alkaline phosphatase measurement (enzymatic activity/volume) 74 U/L 40-136 Serum or plasma aspartate aminotransferase measurement (enzymatic activity/ volume) 31 U/L 5-34 Serum or plasma alanine aminotransferase measurement (enzymatic activity/volume ) 56 U/L 0-55 Serum or plasma protein measurement (mass/volume) 6.7 g/dL 6.4-8.2 Serum or plasma albumin measurement (mass/volume) 4.4 g/dL 3.2-4.5 THYROID STIMULATING HORMONE - 06/12/16 11:15 THYROID STIMULATING HORMONE 1.10 u[iU]/mL 0.35-4.94 Serum or plasma thyroxine (T4) free measurement (mass/volume) - 06/12/16 11:15 Serum or plasma thyroxine (T4) free measurement (mass/volume) 0.84 ng/dL 0.70-1.48 Complete blood count (CBC) with automated white blood cell (WBC) differential - 08/01/16 19:00 Blood leukocytes automated count (number/volume) 12.8 10*3/ uL 4.3-11.0 Blood erythrocytes automated count (number/volume) 5.10 10*6 /uL 4.35-5.85 Venous blood hemoglobin measurement (mass/volume) 14.8 g/dL 13.3-17.7 Blood hematocrit (volume fraction) 42 % 40-54 Automated erythrocyte mean corpuscular volume 82 [foz_us] 80-99 Automated erythrocyte mean corpuscular hemoglobin (mass per erythrocyte) 29 pg 25-34 Automated erythrocyte mean corpuscular hemoglobin concentration measurement ( mass/volume) 35 g/dL 32-36 Automated erythrocyte distribution width ratio 12.8 % 10.0-14.5 Automated blood platelet count (count/volume) 285 10*3/uL 130-400 Automated blood platelet mean volume measurement 10.8 [foz_ us] 7.4-10.4 Automated blood neutrophils/100 leukocytes 64 % 42-75 Automated blood lymphocytes/100 leukocytes 27 % 12-44 Blood monocytes/100 leukocytes 8 % 0-12 Automated blood eosinophils/100 leukocytes 1 % 0-10 Automated blood basophils/100 leukocytes 0 % 0-10 Blood neutrophils automated count (number/volume) 8.2 10*3 1.8-7.8 Blood lymphocytes automated count (number/volume) 3.5 10*3 1.0-4.0 Blood monocytes automated count (number/volume) 1.0 10*3 0.0-1.0 Automated eosinophil count 0.2 10*3/uL 0.0-0.3 Automated blood basophil count (count/volume) 0.0 10*3/uL 0.0-0.1 Comprehensive metabolic panel - 08/01/16 19:00 Serum or plasma sodium measurement (moles/volume) 143 mmol/ L 135-145 Serum or plasma potassium measurement (moles/volume) 4.0 mmol/L 3.6-5.0 Serum or plasma chloride measurement (moles/volume) 111 mmol /L 98-107 Carbon dioxide 25 mmol/L 21-32 Serum or plasma anion gap determination (moles/volume) 7 mmol/L 5-14 Serum or plasma urea nitrogen measurement (mass/volume) 9 mg /dL 7-18 Serum or plasma creatinine measurement (mass/volume) 0.73 mg /dL 0.60-1.30 Serum or plasma urea nitrogen/creatinine mass ratio 12 NRG Serum or plasma creatinine measurement with calculation of estimated glomerular filtration rate > NRG Serum or plasma glucose measurement (mass/volume) 142 mg/dL 70-105 Serum or plasma calcium measurement (mass/volume) 9.4 mg/dL 8.5-10.1 Serum or plasma total bilirubin measurement (mass/volume) 0.5 mg/dL 0.1-1.0 Serum or plasma alkaline phosphatase measurement (enzymatic activity/volume) 86 U/L 40-136 Serum or plasma aspartate aminotransferase measurement (enzymatic activity/ volume) 25 U/L 5-34 Serum or plasma alanine aminotransferase measurement (enzymatic activity/volume ) 39 U/L 0-55 Serum or plasma protein measurement (mass/volume) 6.9 g/dL 6.4-8.2 Serum or plasma albumin measurement (mass/volume) 4.5 g/dL 3.2-4.5 THYROID STIMULATING HORMONE - 08/01/16 19:00 THYROID STIMULATING HORMONE 1.01 u[iU]/mL 0.35-4.94 Complete urinalysis with reflex to culture - 08/01/16 19:10 Urine color determination YELLOW NRG Urine clarity determination CLEAR NRG Urine pH measurement by test strip 6 5- 9 Specific gravity of urine by test strip 1.015 1.016-1.022 Urine protein assay by test strip, semi-quantitative NEGATIVE NEGATIVE Urine glucose detection by automated test strip NEGATIVE NEGATIVE Erythrocytes detection in urine sediment by light microscopy 2+ NEGATIVE Urine ketones detection by automated test strip NEGATIVE NEGATIVE Urine nitrite detection by test strip NEGATIVE NEGATIVE Urine total bilirubin detection by test strip NEGATIVE NEGATIVE Urine urobilinogen measurement by automated test strip (mass/volume) NORMAL NORMAL Urine leukocyte esterase detection by dipstick NEGATIVE NEGATIVE Automated urine sediment erythrocyte count by microscopy (number/high power field) [HPF] NRG Automated urine sediment leukocyte count by microscopy (number/high power field ) RARE NRG Bacteria detection in urine sediment by light microscopy NEGATIVE NRG Crystals detection in urine sediment by light microscopy NONE NRG Casts detection in urine sediment by light microscopy NONE NRG Mucus detection in urine sediment by light microscopy MODERATE NRG Complete urinalysis with reflex to culture NO NRG Complete urinalysis with reflex to culture - 09/06/16 19:30 Urine color determination YELLOW NRG Urine clarity determination SLIGHTLY CLOUDY NRG Urine pH measurement by test strip 6 5- 9 Specific gravity of urine by test strip 1.020 1.016-1.022 Urine protein assay by test strip, semi-quantitative 1+ NEGATIVE Urine glucose detection by automated test strip NEGATIVE NEGATIVE Erythrocytes detection in urine sediment by light microscopy 3+ NEGATIVE Urine ketones detection by automated test strip NEGATIVE NEGATIVE Urine nitrite detection by test strip NEGATIVE NEGATIVE Urine total bilirubin detection by test strip NEGATIVE NEGATIVE Urine urobilinogen measurement by automated test strip (mass/volume) 4 mg/dL NORMAL Urine leukocyte esterase detection by dipstick 1+ NEGATIVE Automated urine sediment erythrocyte count by microscopy (number/high power field) [HPF] NRG Automated urine sediment leukocyte count by microscopy (number/high power field ) [HPF] NRG Bacteria detection in urine sediment by light microscopy LARGE NRG Squamous epithelial cells detection in urine sediment by light microscopy 25-50 NRG Crystals detection in urine sediment by light microscopy NONE NRG Casts detection in urine sediment by light microscopy NONE NRG Mucus detection in urine sediment by light microscopy NEGATIVE NRG Complete urinalysis with reflex to culture NO NRG Urine drug screening test - 09/06/16 19:30 Urine phencyclidine detection by screening method NEGATIVE NEGATIVE Urine benzodiazepines detection by screening method NEGATIVE NEGATIVE Urine cocaine detection NEGATIVE NEGATIVE Urine amphetamines detection by screening method NEGATIVE NEGATIVE Urine methamphetamine detection by screening method NEGATIVE NEGATIVE Urine cannabinoids detection by screening method NEGATIVE NEGATIVE Urine opiates detection by screening method NEGATIVE NEGATIVE Urine barbiturates detection NEGATIVE NEGATIVE Screening urine tricyclic antidepressants detection NEGATIVE NEGATIVE Urine methadone detection by screening method NEGATIVE NEGATIVE Urine oxycodone detection NEGATIVE NEGATIVE Urine propoxyphene detection NEGATIVE NEGATIVE Complete blood count (CBC) with automated white blood cell (WBC) differential - 09/12/16 12:19 Blood leukocytes automated count (number/volume) 9.5 10*3/ uL 4.3-11.0 Blood erythrocytes automated count (number/volume) 5.47 10*6 /uL 4.35-5.85 Venous blood hemoglobin measurement (mass/volume) 15.8 g/dL 13.3-17.7 Blood hematocrit (volume fraction) 45 % 40-54 Automated erythrocyte mean corpuscular volume 82 [foz_us] 80-99 Automated erythrocyte mean corpuscular hemoglobin (mass per erythrocyte) 29 pg 25-34 Automated erythrocyte mean corpuscular hemoglobin concentration measurement ( mass/volume) 35 g/dL 32-36 Automated erythrocyte distribution width ratio 13.7 % 10.0-14.5 Automated blood platelet count (count/volume) 264 10*3/uL 130-400 Automated blood platelet mean volume measurement 10.7 [foz_ us] 7.4-10.4 Automated blood neutrophils/100 leukocytes 65 % 42-75 Automated blood lymphocytes/100 leukocytes 19 % 12-44 Blood monocytes/100 leukocytes 13 % 0-12 Automated blood eosinophils/100 leukocytes 3 % 0-10 Automated blood basophils/100 leukocytes 0 % 0-10 Blood neutrophils automated count (number/volume) 6.2 10*3 1.8-7.8 Blood lymphocytes automated count (number/volume) 1.8 10*3 1.0-4.0 Blood monocytes automated count (number/volume) 1.2 10*3 0.0-1.0 Automated eosinophil count 0.3 10*3/uL 0.0-0.3 Automated blood basophil count (count/volume) 0.0 10*3/uL 0.0-0.1 Comprehensive metabolic panel - 09/12/16 12:19 Serum or plasma sodium measurement (moles/volume) 141 mmol/ L 135-145 Serum or plasma potassium measurement (moles/volume) 4.1 mmol/L 3.6-5.0 Serum or plasma chloride measurement (moles/volume) 107 mmol /L 98-107 Carbon dioxide 24 mmol/L 21-32 Serum or plasma anion gap determination (moles/volume) 10 mmol/L 5-14 Serum or plasma urea nitrogen measurement (mass/volume) 12 mg/dL 7-18 Serum or plasma creatinine measurement (mass/volume) 0.74 mg /dL 0.60-1.30 Serum or plasma urea nitrogen/creatinine mass ratio 16 NRG Serum or plasma creatinine measurement with calculation of estimated glomerular filtration rate > NRG Serum or plasma glucose measurement (mass/volume) 99 mg/dL 70-105 Serum or plasma calcium measurement (mass/volume) 9.2 mg/dL 8.5-10.1 Serum or plasma total bilirubin measurement (mass/volume) 0.8 mg/dL 0.1-1.0 Serum or plasma alkaline phosphatase measurement (enzymatic activity/volume) 86 U/L 40-136 Serum or plasma aspartate aminotransferase measurement (enzymatic activity/ volume) 21 U/L 5-34 Serum or plasma alanine aminotransferase measurement (enzymatic activity/volume ) 41 U/L 0-55 Serum or plasma protein measurement (mass/volume) 6.5 g/dL 6.4-8.2 Serum or plasma albumin measurement (mass/volume) 4.3 g/dL 3.2-4.5 Automated blood complete blood count (hemogram) panel - 03/20/17 23:00 Blood leukocytes automated count (number/volume) 13.7 10*3/ uL 4.3-11.0 Blood erythrocytes automated count (number/volume) 4.86 10*6 /uL 4.35-5.85 Venous blood hemoglobin measurement (mass/volume) 14.1 g/dL 13.3-17.7 Blood hematocrit (volume fraction) 41 % 40-54 Automated erythrocyte mean corpuscular volume 84 [foz_us] 80-99 Automated erythrocyte mean corpuscular hemoglobin (mass per erythrocyte) 29 pg 25-34 Automated erythrocyte mean corpuscular hemoglobin concentration measurement ( mass/volume) 35 g/dL 32-36 Automated erythrocyte distribution width ratio 13.3 % 10.0-14.5 Automated blood platelet count (count/volume) 305 10*3/uL 130-400 Automated blood platelet mean volume measurement 11.0 [foz_ us] 7.4-10.4 RED CELLS LEUKO REDUCED AS1 - 03/20/17 23:00 RED CELLS LEUKO REDUCED AS1 PRSMD TRFSD [id number] NR Blood type T Indirect antibody screen panel - 03/20/17 23:00 ABO+Rh group OP NR Transfusion band number [id number] [facility] Blood group antibody screen NEGATIVE [facility] Blood lactic acid measurement (moles/volume) - 03/20/17 23:00 Blood lactic acid measurement (moles/volume) 3.18 mmol/L 0.50-2.00 Liver function panel (serum or plasma alk phos, alb, total and direct bili, total protein, ALT, AST) - 03/20/17 23:00 Serum or plasma total bilirubin measurement (mass/volume) 0.4 mg/dL 0.1-1.0 Serum or plasma alkaline phosphatase measurement (enzymatic activity/volume) 92 U/L 40-136 Serum or plasma aspartate aminotransferase measurement (enzymatic activity/ volume) 148 U/L 5-34 Serum or plasma alanine aminotransferase measurement (enzymatic activity/volume ) 156 U/L 0-55 Serum or plasma protein measurement (mass/volume) 6.8 g/dL 6.4-8.2 Serum or plasma albumin measurement (mass/volume) 4.0 g/dL 3.2-4.5 Bilirubin direct 0.1 mg/dL 0.0-0.3 Serum or plasma indirect bilirubin measurement (mass/volume) 0.3 mg/dL [facility] Whole blood basic metabolic panel - 03/20/17 23:00 Serum or plasma sodium measurement (moles/volume) 147 mmol/ L 135-145 Serum or plasma potassium measurement (moles/volume) 5.2 mmol/L 3.6-5.0 Serum or plasma chloride measurement (moles/volume) 116 mmol /L 98-107 Carbon dioxide 17 mmol/L 21-32 Serum or plasma anion gap determination (moles/volume) 14 mmol/L 5-14 Serum or plasma urea nitrogen measurement (mass/volume) 8 mg /dL 7-18 Serum or plasma creatinine measurement (mass/volume) 0.90 mg /dL 0.60-1.30 Serum or plasma urea nitrogen/creatinine mass ratio 9 NRG Serum or plasma creatinine measurement with calculation of estimated glomerular filtration rate > NRG Serum or plasma glucose measurement (mass/volume) 126 mg/dL 70-105 Serum or plasma calcium measurement (mass/volume) 8.1 mg/dL 8.5-10.1 Serum or plasma phosphate measurement (mass/volume) - 03/20/17 23:00 Serum or plasma phosphate measurement (mass/volume) 5.4 mg/ dL 2.3-4.7 Magnesium - 03/20/17 23:00 Magnesium 2.5 mg/dL 1.8-2.4 Serum or plasma troponin i.cardiac measurement (mass/volume) - 03/20/17 23:00 Serum or plasma troponin i.cardiac measurement (mass/volume) < ng/mL <0.30 Serum or plasma ethanol measurement (mass/volume) - 03/20/17 23:00 Serum or plasma ethanol measurement (mass/volume) 247 mg/dL <10 Complete urinalysis with reflex to culture - 03/20/17 23:33 Urine color determination YELLOW NRG Urine clarity determination CLEAR NRG Urine pH measurement by test strip 6.5 5 -9 Specific gravity of urine by test strip 1.010 1.016-1.022 Urine protein assay by test strip, semi-quantitative NEGATIVE NEGATIVE Urine glucose detection by automated test strip NEGATIVE NEGATIVE Erythrocytes detection in urine sediment by light microscopy 5+ NEGATIVE Urine ketones detection by automated test strip NEGATIVE NEGATIVE Urine nitrite detection by test strip NEGATIVE NEGATIVE Urine total bilirubin detection by test strip NEGATIVE NEGATIVE Urine urobilinogen measurement by automated test strip (mass/volume) NORMAL NORMAL Urine leukocyte esterase detection by dipstick NEGATIVE NEGATIVE Automated urine sediment erythrocyte count by microscopy (number/high power field) [HPF] NRG Automated urine sediment leukocyte count by microscopy (number/high power field ) NONE NRG Bacteria detection in urine sediment by light microscopy NEGATIVE NRG Crystals detection in urine sediment by light microscopy NONE NRG Casts detection in urine sediment by light microscopy NONE NRG Mucus detection in urine sediment by light microscopy NEGATIVE NRG Complete urinalysis with reflex to culture NO NRG Urine drug screening test - 03/20/17 23:33 Urine phencyclidine detection by screening method NEGATIVE NEGATIVE Urine benzodiazepines detection by screening method NEGATIVE NEGATIVE Urine cocaine detection NEGATIVE NEGATIVE Urine amphetamines detection by screening method NEGATIVE NEGATIVE Urine methamphetamine detection by screening method NEGATIVE NEGATIVE Urine cannabinoids detection by screening method NEGATIVE NEGATIVE Urine opiates detection by screening method NEGATIVE NEGATIVE Urine barbiturates detection NEGATIVE NEGATIVE Screening urine tricyclic antidepressants detection NEGATIVE NEGATIVE Urine methadone detection by screening method NEGATIVE NEGATIVE Urine oxycodone detection NEGATIVE NEGATIVE Urine propoxyphene detection NEGATIVE NEGATIVE Encounters ACCT No. Visit Date/Time Discharge Status Pt. Type Provider Facility Loc./Unit Complaint [id number] 03/20/2017 23:00:00 2016 23:53:00 DIS Emergency AAKASH VALDERRAMA MD [facility] ER MULTIPLE TRAUMA [id number] 10/31/2016 11:59:00 2016 14:15:00 DIS Emergency REJI HERNANDEZ APRN [facility] ER BACK PAIN [id number] 10/02/2016 10:27:00 2015 14:10:00 DIS Emergency AAKASH VALDERRAMA MD [facility] ER L LEG PAIN [id number] 09/26/2016 16:55:00 2015 17:12:00 DIS Emergency REJI HERNANDEZ APRN [facility] ER L LEG PAIN [id number] 09/12/2016 11:55:00 2015 13:23:00 DIS Emergency REJI HERNANDEZ APRN [facility] ER DIARRHEA/NAUSEA [id number] 09/06/2016 16:40:00 2015 20:57:00 DIS Emergency NILSON MCNAIR DO [facility] ER BACK AND L LEG PAIN [id number] 08/11/2016 12:55:00 2015 14:14:00 DIS Emergency REJI HERNANDEZ APRN [facility] ER LEFT LEG PAIN [id number] 08/05/2016 02:45:00 2015 03:29:00 DIS Emergency LAVELLE ARANDA, AAKASH Lawler [facility] ER LEFT SIDE PAIN FROM HEAD TO BACK [id number] 08/01/2016 18:46:00 2015 20:15:00 DIS Emergency REJI HERNANDEZ APRN [facility] ER WEAKNESS/HEAD PAIN [id number] 06/12/2016 10:33:00 2015 12:40:00 DIS Emergency REJI HERNANDEZ [employer] [facility] ER WEAKNESS/DIARRHEA/CHILLS [id number] 05/04/2016 07:48:00 2015 10:00:00 DIS Outpatient ALEXI MERCEDES DO [facility] OCCULT POSITIVE STOOLS; GI BLEED [id number] 04/29/2016 05:42:00 2015 16:16:00 DIS Outpatient ALEXI MERCEDES DO [facility] PREOP [id number] 03/19/2016 14:45:00 2015 11:25:00 DIS Inpatient PATEL MELENDEZ MD [facility] ICU HEMATOCHEZIA ABD PAIN N/V/D [id number] 03/18/2016 14:42:00 2015 16:35:00 DIS Emergency REJI HERNANDEZ APRN [facility] ER DIZZINESS/WEAKNESS [id number] 09/09/2015 15:30:00 2014 23:59:59 CLS Outpatient ANN SMITH MD [facility] RAD LBP RADIATING INTO LEFT LEG, WEAKNESS [id number] 09/08/2015 13:46:00 2014 14:48:00 DIS Outpatient CARINE DAVIS MD [facility] CARD DISC DISORDER W/RADICULOPATHY [id number] 06/07/2015 08:59:00 2014 09:47:00 DIS Emergency MOLLY BANEGAS MD [facility] ER BACK PAIN [id number] 01/20/2015 10:50:00 2014 08:14:00 DIS Outpatient ANN SMITH MD [facility] REHAB LBP DDD L4-L5 [id number] 11/04/2014 11:14:00 2014 23:59:59 CLS Outpatient BRIJESH SALAS MD [facility] SDC STENOSIS [id number] 10/31/2014 08:23:00 2014 23:59:59 CLS Outpatient BRIJESH SALAS MD [facility] PREOP STENOSIS [id number] 10/23/2014 17:00:00 2014 18:54:00 DIS Emergency MARCELO DONAHUE JARED Healy [facility] ER LEG PAIN [id number] 08/29/2014 14:39:00 2013 23:59:59 CLS Outpatient REJI HERNANDEZ APRN [facility] RAD LUMBAR RADICULAR SYMPTOMS [id number] 08/21/2014 13:42:00 2013 14:47:00 DIS Emergency 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 [id number] 08/04/2014 17:06:00 2013 17:30:00 DIS Emergency CINDY DIAZ MD [facility] ER BACK PAIN [id number] 03/23/2014 21:37:00 2013 22:29:00 DIS Emergency AMILCAR LOUIS MD [facility] ER RASH [id number] 03/22/2014 22:04:00 2013 23:02:00 DIS Emergency 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
== END 2017-03-20 23:53 | disposition short-term general hospital (02) ==
LOC: EDUNIT# 22:58 → ER 23:00
DX: S82.252A Displaced comminuted fracture of shaft of left tibia, initial encounter for closed fracture (principal); S82.452A Displaced comminuted fracture of shaft of left fibula, initial encounter for closed fracture; S42.255A Nondisplaced fracture of greater tuberosity of left humerus, initial encounter for closed fracture; S01.01XA Laceration without foreign body of scalp, initial encounter; S41.112A Laceration without foreign body of left upper arm, initial encounter; R41.82 Altered mental status, unspecified; V49.40XA Driver injured in collision with unspecified motor vehicles in traffic accident, initial encounter; Y92.411 Interstate highway as the place of occurrence of the external cause
CPT/HCPCS: 31500; 36415; 43760; 51702; 71010; 72170; 73590; 80048; 80076; 80306; 80320; 81000; 83605; 83735; 84100; 84484; 85027; 85379; 85384; 85610; 85730; 86850; 86900; 86901; 86920; 93041; 96374; 96375; 99291

== ENCOUNTER 2018-03-30 15:25 | Emergency (ER) | payer OTHER ==
[~2018-03-30] VITALS: Ht 167.6 cm; Wt 79.4 kg
[~2018-03-30 15:25] MED LIST changes: -TRANEXAMIC ACID 100 MG/ML 10 ML INJECTION IV ONE
[2018-03-30] MEDS ORDERED: fentaNYL INJECTION 100 MCG/2 ML AMP IVP STA (17:16)
[2018-03-30] MEDS ORDERED: TETANUS,DIPTH,PERTUSS P/F (BOOSTRIX) 0.5 ML VIAL IM STA (17:16)
[2018-03-30] MEDS ORDERED: LIDOCAINE 1% INJ 20 ML 20 ML VIAL INJ ONE (17:30)
[2018-03-30] MEDS ORDERED: HYDROcodone/APAP 7.5 MG/325 MG (LORTAB, LORCET PLUS) TABLET PO STA (17:32)
--- NOTE | 2018-03-30 17:52 | ED Upper Extremity ---
General Chief Complaint: Laceration Stated Complaint: R HAND INJ Nursing Triage Note: PT CO OF R HAND LAC CAUGHT IN MACHINE AT WORK, PT HAS LAC ON TOP OF R HAND APPROX 3CM LENGTH PT IS UNABLE TO MOVE 1ST FINGER UP. SENT TO ED BY [facility] Nursing Sepsis Screen: No Definite Risk History of Present Illness Date Seen by Provider: Mar 30, 2018 Time Seen by Provider: 17:00 Initial Comments 37-year-old male presents for laceration dorsum right hand and inability to straighten his right index finger. He works at [employer] and reports that a press was not working he put his hand into the machine and it came down causing the laceration. The machine essentially was cleaned. He is unsure of his tetanus status, we will give a tetanus booster today. He is right- hand dominant he denies any previous history of injuries to his right hand. Onset: just prior to arrival Severity: moderate Pain/Injury Location: right hand, right 2nd finger Method of Injury: incised Modifying Factors: Improves With Rest Allergies and Home Medications Allergies Coded Allergies: No Known Drug Allergies (Unverified , 06/12/16) Home Medications Cephalexin 500 Mg Capsule, 500 MG PO TID Prescribed by: LEONA GRAJEDA on 03/30/181822 Hydrocodone Bit/Acetaminophen 1 Tab Tab, 1 EACH PO Q6H PRN for PAIN Prescribed by: LEONA GRAJEDA on 03/30/181822 Patient Home Medication List Home Medication List Reviewed: Yes Constitutional: no symptoms reported, see HPI Musculoskeletal: no symptoms reported, muscle weakness (extensor mechanisms right index finger) Skin: see HPI, lesions (laceration right hand) All Other Systems Reviewed Negative Unless Noted: Yes Past Schiyxc-Ykmyur-Oajnho Hx Past Med/Social Hx: Reviewed Nursing Past Med/Soc Hx Patient Social History Alcohol Use: Rarely Uses Recreational Drug Use: No Smoking Status: Light Tobacco Smoker (approximately 5 cigarettes daily) Type Used: Cigarettes Recent Foreign Travel: No Contact w/Someone Who Travel: No Recent Infectious Disease Expo: No Recent Hopitalizations: No (RECENT ABDOMINAL INFECTION) Immunizations Up To Date Tetanus Booster (TDap): Unknown Date of Influenza Vaccine: Jul 17, 2016 Seasonal Allergies Seasonal Allergies: No Past Medical History Surgeries: No Respiratory: No Cardiac: No Neurological: Yes Headaches /Migraines Gastrointestinal: Yes (gi bleed) Gastroesophageal Reflux Musculoskeletal: Yes Chronic Back Pain Endocrine: No Cancer: No Psychosocial: No Integumentary: No Blood Disorders: No Adverse Reaction/Blood Tranf: No Family Medical History No Pertinent Family Hx Physical Exam Vital Signs Vital Signs - First Documented 03/30/18 16:45 Temp 97.4 Pulse 81 Resp 18 B/P (MAP) 147/89 (108) Pulse Ox 97 Capillary Refill : Less Than 3 Seconds General Appearance: WD/WN, no apparent distress HEENT: PERRL/EOMI, normal ENT inspection, TMs normal, pharynx normal Cardiovascular: normal peripheral pulses, regular rate, rhythm, no murmur Respiratory: chest non-tender, lungs clear, normal breath sounds Gastrointestinal: normal bowel sounds, non tender, soft Wrist: Yes pain, Yes soft tissue tenderness, Yes swelling Hand: Right, laceration (3.5 cm full-thickness laceration at the radial metacarpal joint, dorsum right hand), limited ROM (inability to extend or maintain extension at the MCP PIP or DIP joint of the right index finger. Full flexion at the MCP PIP and DIP joint of the right index finger. Full active, resisted and passive range of motion of the third through fifth fingers on the right hand.), soft tissue tenderness, stiffness, swelling Neurologic/Tendon: normal sensation; No normal motor functions (right index finger), No normal tendon functions (right index finger) Neurologic/Psychiatric: alert, normal mood/affect, oriented x 3 Procedures/Interventions Wound Location: Upper Extremities (right hand, dorsum) Wound Length (cm): 3.5 Wound's Depth, Shape: into muscle, tendon (laceration of the extensor digitorum, index finger) Wound Explored: clean Irrigated w/ Saline (ccs): 500 Betadine Prep?: Yes Anesthesia: 1% Lidocaine Volume Anesthetic (ccs): 8 Suture: Plain Suture Size: 4-0 Number of Sutures: 4 Sterile Dressing Applied?: Yes Progress Wound loosely approximated with 4 sutures, bulky sterile dressing applied, volar extension splint with 4inch Ortho-Glass applied. Neurovascular status intact post procedure, patient tolerated well. Progress/Results/Core Measures Results/Orders My Orders Orders - LEONA GRAJEDA Wrist, Right, 3 Views Or More (03/30/18 17:15) Hand, Right, 3 Views (03/30/18 17:15) Dipht,Pertuss(Acell),Tet Adult (Boostrix (03/30/18 17:16) Fentanyl Injection (Sublimaze Injection (03/30/18 17:16) Lidocaine 1% Inj 20 Ml (Xylocaine 1% Inj (03/30/18 17:30) Hydrocodone/Apap 7.5/325 Tab (Lortab 7. (03/30/18 17:32) Medications Given in ED Current Medications Medications Dose Ordered Sig/Sarita Route Start Time Stop Time Status Last Admin Dose Admin Lidocaine HCl 20 ml ONCE ONCE INJ 03/30/18 17:30 03/30/18 17:32 DC 03/30/18 17:42 20 ML Vital Signs/I&O 03/30/18 16:45 Temp 97.4 Pulse 81 Resp 18 B/P (MAP) 147/89 (108) Pulse Ox 97 Blood Pressure Mean: 108 Progress Progress Note : Time: 17:00 Progress Note Initial evaluation completed, recommended x-rays of the right hand and wrist. 1725 discussed patient's exam and findings with Dr. Leavitt per phone, he recommended closure of the wound, extension splint with the fingers and full extension and follow-up with Dr. Pedraza for tendon repair. 174 no fractures or dislocations noted on x-ray, discussed recommendations for repair with the patient, he agreed with this treatment plan. 1830 discharge instructions and return precautions reviewed with the patient. All questions answered. Diagnostic Imaging Diagonstic Imaging: Xray Plain Films/CT/US/NM/MRI: hand Comments NAME: SANA PACK [facility] REC#: [id number] PT STATUS: REG ER : 1980 PHYSICIAN: LEONA GRAJEDA [facility] [place] ADMIT DATE: 03/30/18/ER Draft Date of Exam:03/30/18 HAND, RIGHT, 3 VIEWS PATIENT HISTORY: Laceration of the right hand. TECHNIQUE: Three views of the right hand. COMPARISON: None. FINDINGS: No acute fracture or dislocation is seen in the right hand. Alignment appears normal. The joint spaces are preserved. There is a soft tissue defect at the dorsal aspect of the right hand carpus. No radiopaque foreign bodies are seen. IMPRESSION: Soft tissue laceration dorsal to the right carpus with no radiopaque foreign body seen. No acute osseous abnormality seen. Dictated on workstation # [id number] Dict: 03/30/188 Trans: 03/30/18 1801 LAZARO [id number] Interpreted by: VERN DUARTE MD Electronically signed by: Reviewed: Reviewed by Me Diagonstic Imaging: Xray Plain Films/CT/US/NM/MRI: other (right wrist) Comments NAME: SANA PACK [facility] REC#: [id number] PT STATUS: REG ER : 1980 PHYSICIAN: LEONA GRAJEDAP ADMIT DATE: 03/30/18/ER Draft Date of Exam:03/30/18 WRIST, RIGHT, 3 VIEWS OR MORE INDICATION: Laceration to the hand caught in machine at work. Unable to move first finger. EXAMINATION: Right wrist, 03/30/2018. FINDINGS: Three views of the wrist. Large soft tissue abnormality noted along the dorsal aspect of the wrist. There appears to be an overlying bandage which does limit evaluation for tiny foreign bodies with no obvious foreign body appreciated. No fracture or dislocation seen. IMPRESSION: Soft tissue abnormality, as described. No acute osseous abnormality. Dictated on workstation # [id number] Dict: 03/30/181756 Trans: 03/30/18 180 [facility] [id number] Interpreted by: YASMEEN ALAN MD Electronically signed by: Reviewed: Reviewed by Me Departure Impression Primary Impression: Laceration of right hand Qualified Codes: S61.411A - Laceration without foreign body of right hand, initial encounter Additional Impression: Extensor tendon laceration of finger with open wound Qualified Codes: S66.529A - Laceration of intrinsic muscle, fascia and tendon of unspecified finger at wrist and hand level, initial encounter; S61.209A - Unspecified open wound of unspecified finger without damage to nail, initial encounter Disposition: 01 HOME, SELF-CARE Condition: Stable Departure-Patient Inst. Decision time for Depature: 18:00 Referrals: KAMILLA MCNEIL MD (PCP/Family) Primary Care Physician Patient Instructions: Laceration Repair With Stitches (DC), Tendon Laceration ( DC) Add. Discharge Instructions: Keep wound clean and dry at all times, do not remove the current dressing or splint, reenforce with additional dressing as needed. Call Dr. Pedraza's office tomorrow for follow-up at [phone] Take pain medication as needed every 6-8 hours. Take Keflex as ordered. Do not eat or drink anything after midnight tonight, if you are not having surgery tomorrow then you may resume normal meals. Ice and elevate right hand for swelling and pain. Return to emergency department for new injuries or concerns. All discharge instructions reviewed with patient and/or family. Voiced understanding. Scripts Cephalexin (Keflex) 500 Mg Capsule 500 MG PO TID, #21 CAP 0 Refills Prov: LEONA GRAJEDA 03/30/18 Hydrocodone Bit/Acetaminophen (Hydrocodone/Acetaminophen 5/325mg Tablet) 1 Tab Tab 1 EACH PO Q6H PRN for PAIN, #20 TAB 0 Refills Prov: LEONA GRAJEDA 03/30/18 Work/School Note: Work Release Form Date Seen in the Emergency Department: Mar 30, 2018 Return to Work: Apr 05, 2018 Restrictions: Need Release from Doctor Other Restrictions Listed Below: No work until released by Dr. Pedraza Copy Copies To 1: UNA LEAVITT DO Copies To 2: PATEL PEDRAZA DO; KAMILLA MCNEIL MD, AMY ARNP Mar 30, 2018 17:52
--- NOTE | 2018-03-30 18:01 | Diagnostic Imaging Report ---
PATIENT HISTORY: Laceration of the right hand. TECHNIQUE: Three views of the right hand. COMPARISON: None. FINDINGS: No acute fracture or dislocation is seen in the right hand. Alignment appears normal. The joint spaces are preserved. There is a soft tissue defect at the dorsal aspect of the right hand carpus. No radiopaque foreign bodies are seen. IMPRESSION: Soft tissue laceration dorsal to the right carpus with no radiopaque foreign body seen. No acute osseous abnormality seen. Dictated by: Dictated on workstation # [id number]
--- NOTE | 2018-03-30 18:03 | Diagnostic Imaging Report ---
INDICATION: Laceration to the hand caught in machine at work. Unable to move first finger. EXAMINATION: Right wrist, 03/30/2018. FINDINGS: Three views of the wrist. Large soft tissue abnormality noted along the dorsal aspect of the wrist. There appears to be an overlying bandage which does limit evaluation for tiny foreign bodies with no obvious foreign body appreciated. No fracture or dislocation seen. IMPRESSION: Soft tissue abnormality, as described. No acute osseous abnormality. Dictated by: Dictated on workstation # [id number]
[2018-03-30] MEDS ORDERED: CEPH-507 PO (18:23)
[2018-03-30] MEDS ORDERED: ACHD5005 PO (18:23)
[2018-03-30 18:30] VITALS: BP 147/89
--- OUTSIDE RECORDS SUMMARY | 2018-03-30 19:24 | XMS REPORT | Clinical Summary ---
Author Author [facility] Organization [facility] Address Unknown Phone Unavailable Care Team Providers Care Electric Switch Tester Name Role Phone Sandro Pratt MD PCP Source Comments Some departments are not documenting in the electronic medical record. If you do not see the information that you expected, contact Release of Information in the Health Information Management department at [phone] for further assistance in locating additional records.[facility] Allergies No Known Allergies Current Medications Prescription Sig. [...] Years Used Date Current Some Day Smoker Sex Assigned at Date Recorded Not on file Last Filed Vital Signs Vital Sign Reading Time Taken Blood Pressure 118/70 12/07/2016 10:32 AM [employer] Pulse 91 12/07/2016 10:32 AM [employer] Temperature 37.1 C (98.7 F) 10/19/2016 1:59 PM [employer] Respiratory Rate 15 10/19/2016 1:59 PM [employer] Oxygen Saturation 100% 10/19/2016 1:59 PM [employer] Inhaled Oxygen - - Concentration Weight 70.3 kg (155 lb) 12/07/2016 10:32 AM [employer] Height 167.6 cm (5' 6") 12/07/2016 10:32 AM [employer] Body Mass Index 25.02 12/07/2016 10:32 AM [employer] Plan of Treatment Health Maintenance Due Date Last Done Comments PHYSICAL (COMPREHENSIVE) 1988 EXAM PERTUSSIS VACCINE 1992 HIV SCREENING 1996 TETANUS VACCINE 1998 INFLUENZA VACCINE 07/17/2018 Results Not on filefrom Last 3 Months
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
== END 2018-03-30 18:30 | disposition home or self-care (01) ==
LOC: EDUNIT# 15:25 → ER 15:27
DX: S66.320A Laceration of extensor muscle, fascia and tendon of right index finger at wrist and hand level, initial encounter (principal); G43.909 Migraine, unspecified, not intractable, without status migrainosus; K21.9 Gastro-esophageal reflux disease without esophagitis; F17.210 Nicotine dependence, cigarettes, uncomplicated; Z23 Encounter for immunization; W31.89XA Contact with other specified machinery, initial encounter; Y92.59 Other trade areas as the place of occurrence of the external cause; Y99.0 Civilian activity done for income or pay
CPT/HCPCS: 12002; 29125; 73110; 73130; 90471; 90715

== ENCOUNTER 2022-09-13 16:17 | Emergency (ER) | payer OTHER ==
[~2022-09-13] VITALS: Ht 170.2 cm; Wt 79.4 kg
[~2022-09-13 16:17] MED LIST changes: +ACHD5005 PO; +CEPH-507 PO; +METR-145 PO; -METR500T21 PO; -OXYC-197 PO; -OXYC-201 PO; -OXYC-202 PO; +OXYC-527 PO; +OXYC1TAB12 PO; +OXYC1TAB16 PO; +OXYC1TAB87 PO; -OXYC30TA80 PO; -TRAM50TA2 PO; +TRM50T PO
[2022-09-13 16:28] VITALS: BP 132/81
[2022-09-13] MEDS ORDERED: RX-OSELTAMIVIR 75 MG (TAMIFLU) BOX OF 10 PO STA (17:09)
--- NOTE | 2022-09-13 17:12 | ED Cough/URI ---
General Chief Complaint: Cough/Cold/Flu Symptoms Stated Complaint: HEADACHE,COUGH,CONGESTION,BODY ACHES Nursing Triage Note: PT AMB TO TRIAGE WITH COMPLAINT OF COUGH, FEVER, CONGESTION SINCE YESTERDAY. Source: patient Exam Limitations: no limitations History of Present Illness Date Seen by Provider: Sep 13, 2022 Allergies and Home Medications Allergies Coded Allergies: No Known Drug Allergies (Unverified , 06/12/16) Patient Home Medication List Cephalexin (Keflex) 500 Mg Capsule, 500 MG PO TID Prescribed by: LEONA GRAJEDA on 03/30/181822 Hydrocodone Bit/Acetaminophen (Lortab 5 Mg Tablet) 1 Tab Tab, 1 EACH PO Q6H PRN for PAIN Prescribed by: LEONA GRAJEDA on 03/30/181822 Past Jegrqti-Enmzen-Gktoox Hx Patient Social History Tobacco Use?: Yes Tobacco type used: Cigarettes Smoking Status: Current Everyday Smoker Use of E-Cig and/or Vaping dev: No Substance use?: No Alcohol Use?: No Pt feels they are or have been: No Immunizations Up To Date Tetanus Booster (TDap): Unknown Seasonal Allergies Seasonal Allergies: No Past Medical History Surgeries: No Respiratory: No Cardiac: No Neurological: Yes Headaches /Migraines Gastrointestinal: Yes (gi bleed) Gastroesophageal Reflux Musculoskeletal: Yes Chronic Back Pain Endocrine: No Cancer: No Psychosocial: No Integumentary: No Blood Disorders: No Adverse Reaction/Blood Tranf: No Family Medical History No Pertinent Family Hx Physical Exam Vital Signs - First Documented 09/13/22 16:28 Temp 37.1 Pulse 90 Resp 16 B/P (MAP) 132/81 (98) Pulse Ox 96 O2 Delivery Room Air Capillary Refill : Less Than 3 Seconds Height: 5'6.00" Weight: 175lbs. 0.0oz. [id number]; 27.00 BMI Method:Stated Procedures/Interventions Suture Size: 4-0 Progress/Results/Core Measures Suspected Sepsis SIRS Temperature: Pulse: 90 Respiratory Rate: 16 Blood Pressure 132 /81 Mean: 98 Results/Orders Lab Results Laboratory Tests Test 09/13/22 16:30 Range/Units Influenza Type A (RT-PCR) Detected H Not Detecte Influenza Type B (RT-PCR) Not Detected Not Detecte SARS-CoV-2 RNA (RT-PCR) Not Detected Not Detecte My Orders Orders - NAVEEN,STORMY D RENDERER Covid 19 Inhouse Test (09/13/22 16:18) Influenza A And B By Pcr (09/13/22 16:18) Ketorolac Injection (Toradol Injection) (09/13/22 17:15) Rx-Oseltamivir Caps (Rx-Tamiflu Caps) (09/13/22 17:09) Vital Signs/I&O 09/13/22 09/13/22 16:28 16:58 Temp 37.1 Pulse 90 Resp 16 B/P (MAP) 132/81 (98) Pulse Ox 96 O2 Delivery Room Air Room Air Capillary Refill : Less Than 3 Seconds Blood Pressure Mean: 98 Departure Impression Primary Impression: Influenza A Disposition: 01 HOME, SELF-CARE Condition: Stable Departure-Patient Inst. Decision time for Depature: 17:11 Referrals: NO,LOCAL PHYSICIAN (PCP/Family) Primary Care Physician Patient Instructions: Flu, Adult (DC) Add. Discharge Instructions: Plan: 1. Discharge home. Take Tamiflu with food twice a day for 5 days. 2. Stay home for 5 days. If you are still running fever, you will need to stay home until you are fever free. 3. Wash your hands frequently, disinfect surfaces at home. Try to isolate yourself from others in the house as much as you are able. 4. Clean areas that may have blood, stool, or body fluids on them. 5. Cover your mouth and nose when you cough or sneeze, throw away tissues, and wash hands immediately. 6. Return to ER if you develop: trouble breathing, persistent pain or pressure i n the chest, new confusion, inability to wake or stay awake, pale, velazquez, blue- colored skin, lips, or nail beds depending on skin tone. 7. Return to ER for any other new, concerning, or worsening symptoms. All discharge instructions reviewed with patient and/or family. Voiced understanding. TALHA HODGE RENDERER Sep 13, 2022 17:12
[2022-09-13] MEDS ORDERED: KETOROLAC 60 MG/2 ML VIAL IM ONE (17:15)
== END 2022-09-13 17:34 | disposition home or self-care (01) ==
LOC: EDUNIT# 16:17 → ER 16:19
DX: J10.1 Influenza due to other identified influenza virus with other respiratory manifestations (principal); F17.210 Nicotine dependence, cigarettes, uncomplicated; Z20.822 Contact with and (suspected) exposure to COVID-19
CPT/HCPCS: 87636; 99283